=== PATIENT | female | born 1990 | race Two or more races ===

== ENCOUNTER 2017-12-29 01:59 | Emergency (ER) | payer OTHER ==
[~2017-12-29] VITALS: Ht 162.6 cm; Wt 48.0 kg
[2017-12-29 04:46] VITALS: BP 106/76
== END 2017-12-29 06:12 | disposition home or self-care (01) ==
LOC: ED 06:11
DX: F10.120 Alcohol abuse with intoxication, uncomplicated (principal)
CPT/HCPCS: 99283